=== PATIENT | female | born 1960 | race Caucasian/White ===

== ENCOUNTER 2020-04-04 00:13 | Emergency (ER) | payer SELFPAY ==
[2020-04-04] MEDS ORDERED: predniSONE 20 MG TAB ONE (00:51)
[2020-04-04] MEDS ORDERED: DIPHENHYDRAMINE 50 MG/ML VIAL ONE (00:51)
[2020-04-04] MEDS ORDERED: METHYLPREDNISOLONE 125 MG INJ ONE (00:51)
[2020-04-04] MEDS ORDERED: NA CHLORIDE 0.9% 1,000 ML ONE (00:51)
[2020-04-04] MEDS ORDERED: FAMOTIDINE 20 MG/2 ML VIAL IV ONE ×2 (00:52→01:03)
[2020-04-04 01:00] LABS: Absolute Lymphocytes (CBC) 3.4 K/uL (0.7-4.9); Basophils % 0.7 % (0-1.3); Lymphocytes % 27.5 % (15.3-44.8); MPV 8.6 fL (7.6-11.3); RBC Red Blood Cell Count 4.75 M/uL (3.86-4.86)
[2020-04-04] MEDS ORDERED: ONDANSETRON 4 MG/2 ML VIAL ONE (01:15)
[2020-04-04 02:08] LABS: Albumin 3.4 g/dL (3.4-5.0); Bilirubin Total 0.3 mg/dL (0.2-1.0); Potassium 3.8 mmol/L (3.5-5.1); Protein, Total 7.1 g/dL (6.4-8.2)
--- NOTE | 2020-04-04 02:15 | ER ---
Nurse's Notes [facility] Name: Michelle Cottrell Age: 59 yrs Sex: Female : 1960 Arrival Date: 04/04/2020 Time: 00:18 Bed 19 Private MD: Diagnosis: Urticaria;Angioneurotic edema;Essential (primary) hypertension Presentation: 04/04 00:28 Chief complaint: Patient states: was just started on some meds a few days ago. C/O wh redness, itchiness and swollen lips that started last night. Coronavirus screen: Client denies travel out of the [place] in the last 14 days. At this time, the client does not indicate any symptoms associated with coronavirus-19. Ebola Screen: Patient negative for fever greater than or equal to 101.5 degrees Fahrenheit, and additional compatible Ebola Virus Disease symptoms Patient denies exposure to infectious person. Onset: The symptoms/episode began/occurred yesterday. Anaphylaxis evaluation, the patient reports or I have noted the following symptoms which indicate a significant risk of anaphylaxis: urticaria. Initial Sepsis Screen: Does the patient meet any 2 criteria? HR > 90 bpm. Yes Does the patient have a suspected source of infection? No. Patient's initial sepsis screen is negative. Risk Assessment: Do you want to hurt yourself or someone else? Patient reports no desire to harm self or others. Onset of symptoms was April 02, 2020. 00:28 Method Of Arrival: Ambulatory 00:28 Acuity: MODESTA 4 wh Historical: - Allergies: 00:32 Morphine; 00:32 Benadryl; 00:32 Valium; wh - Home Meds: 00:32 trazodone 50 mg Oral tab 1 tab nightly [Active]; venlafaxine 150 mg oral cp24 1 cap once daily [Active]; lisinopril 5 mg Oral tab 1 tab once daily [Active]; - PMHx: 00:32 Depression; Anxiety; Hypertension; wh - Immunization history:: Adult Immunizations unknown. - Social history:: Smoking status: Patient reports the use of cigarette tobacco products, denies chronic smoking, but will smoke occasionally. - Family history:: not pertinent. Screenin:34 Abuse screen: Denies threats or abuse. Denies injuries from another. Nutritional screening: No deficits noted. Tuberculosis screening: No symptoms or risk factors identified. Fall Risk None identified. Assessment: 00:33 General: Appears in no apparent distress. Behavior is calm, cooperative, appropriate for age. Pain: Denies pain. Neuro: Level of Consciousness is awake, alert, obeys commands, Oriented to person, place, time, situation, Appropriate for age. Cardiovascular: Heart tones S1 S2. Respiratory: Airway is patent Respiratory effort is even, unlabored, Respiratory pattern is regular, symmetrical, Breath sounds are clear bilaterally. GI: Abdomen is flat, non-distended. : No signs and/or symptoms were reported regarding the genitourinary system. EENT: swollen lips. Throat is pink. Derm: Skin is intact, Reports itching. Musculoskeletal: Circulation, motion, and sensation intact. 01:42 Reassessment: Patient appears in no apparent distress at this time. No changes from previously documented assessment. Patient and/or family updated on plan of care and expected duration. Pain level reassessed. Patient is alert, oriented x 3, equal unlabored respirations, skin warm/dry/pink. Patient states feeling better. Patient states symptoms have improved. 02:30 Reassessment: Patient appears in no apparent distress at this time. Patient and/or family updated on plan of care and expected duration. Pain level reassessed. Patient is alert, oriented x 3, equal unlabored respirations, skin warm/dry/pink. Patient states feeling better. Patient states symptoms have improved. Vital Signs: 00:28 BP 182 / 85; Pulse 92; Resp 18; Temp 98.3; Pulse Ox 98% ; Weight 58.97 kg; Height 5 ft. 2 in. (157.48 cm); 01:35 BP 159 / 67; Pulse 77; Resp 16; Pulse Ox 98% on R/A; ms 02:30 BP 147 / 74; Pulse 72; Resp 18; Pulse Ox 97% on R/A; 00:28 Body Mass Index 23.78 (58.97 kg, 157.48 cm) ED Course: 00:18 Patient arrived in ED. bg2 00:20 Everett Hernandez is Primary Nurse. 00:28 Kelechi Jackson MD is Attending Physician. patricio 00:30 Triage completed. 00:34 Patient has correct armband on for positive identification. Bed in low position. Call light in reach. Side rails up X 1. Pulse ox on. NIBP on. 00:34 Arm band placed on right wrist. 00:51 Inserted saline lock: 20 gauge in right antecubital area, using aseptic technique. ms Blood collected. 02:31 No provider procedures requiring assistance completed. IV discontinued, intact, bleeding controlled, No redness/swelling at site. Administered Medications: 00:41 Drug: predniSONE 60 mg Route: PO; 02:31 Follow up: Response: No adverse reaction 00:51 Drug: NS 0.9% 1000 ml Route: IV; Rate: 1 bolus; Site: right antecubital; 02:31 Follow up: Response: No adverse reaction; IV Status: Completed infusion 00:53 Drug: SOLU-Medrol 125 mg Route: IVP; Site: right antecubital; 02:31 Follow up: Response: No adverse reaction 00:55 Drug: Pepcid 40 mg Route: IVP; Site: right antecubital; 02:31 Follow up: Response: No adverse reaction 00:57 Drug: Benadryl 25 mg Route: IVP; Site: right antecubital; 02:31 Follow up: Response: No adverse reaction 01:04 Drug: Zofran (Ondansetron) 4 mg Route: IVP; Site: right antecubital; 02:31 Follow up: Response: No adverse reaction; Nausea is decreased Outcome: 02:14 Discharge ordered by . [facility] 02:32 Discharged to home ambulatory. 02:32 Condition: stable 02:32 Discharge instructions given to patient, Instructed on discharge instructions, follow up and referral plans. no drinking with medication, no driving heavy equipment, medication usage, POC Demonstrated understanding of instructions, follow-up care, medications, POC Prescriptions given X 4. 02:32 Patient left the ED. Signatures: Kelechi Jackson MD MD cha Glass, Isabella Toledo mt, Winsy Corrections: (The following items were deleted from the chart) 00:33 00:28 Pulse 92bpm; Resp 18bpm; Pulse Ox 98%; Temp 98.3F; 58.97 kg; Height 5 ft. 2 in.; BMI: 23.7;
--- NOTE | 2020-04-04 02:15 | EDPHYS ---
Physician Documentation [facility] Name: Michelle Cottrell Age: 59 yrs Sex: Female : 1960 Arrival Date: 04/04/2020 Time: 00:18 Bed 19 Private MD: Keelchi Nava HPI: 04/04 00:35 This 59 yrs old Female presents to ER via Ambulatory with complaints of patricio Allergic Reaction. 00:35 This 59 yrs old Female presents to ER via Ambulatory with complaints of patricio Allergic Reaction. 00:35 The patient presents with hoarse voice, localized swelling, rash, redness of skin, patricio swelling of the lips. Onset: The symptoms/episode began/occurred just prior to arrival, today. Associated signs and symptoms: Pertinent positives: hives, rash, swelling. Possible causes: SEAN inhibitor, lisinopril. At home the patient or guardian has treated the symptoms with nothing. The patient has not experienced similar symptoms in the past. Historical: - Allergies: 00:32 Morphine; wh 00:32 Benadryl; wh 00:32 Valium; wh - Home Meds: 00:32 trazodone 50 mg Oral tab 1 tab nightly [Active]; venlafaxine 150 mg oral cp24 1 cap wh once daily [Active]; lisinopril 5 mg Oral tab 1 tab once daily [Active]; - PMHx: 00:32 Depression; Anxiety; Hypertension; wh - Immunization history:: Adult Immunizations unknown. - Social history:: Smoking status: Patient reports the use of cigarette tobacco products, denies chronic smoking, but will smoke occasionally. - Family history:: not pertinent. ROS: 00:35 Constitutional: Negative for fever, chills, and weight loss, Eyes: Negative for injury, patricio pain, redness, and discharge, Neck: Negative for injury, pain, and swelling, Cardiovascular: Negative for chest pain, palpitations, and edema, Respiratory: Negative for shortness of breath, cough, wheezing, and pleuritic chest pain, Abdomen/GI: Negative for abdominal pain, nausea, vomiting, diarrhea, and constipation, Back: Negative for injury and pain, : Negative for injury, bleeding, discharge, and swelling, MS/Extremity: Negative for injury and deformity, Skin: Negative for injury, rash, and discoloration, Neuro: Negative for headache, weakness, numbness, tingling, and seizure, Psych: Negative for depression, anxiety, suicide ideation, homicidal ideation, and hallucinations, Allergy/Immunology: Negative for hives, rash, and allergies, Endocrine: Negative for neck swelling, polydipsia, polyuria, polyphagia, and marked weight changes, Hematologic/Lymphatic: Negative for swollen nodes, abnormal bleeding, and unusual bruising. 00:35 ENT: Positive for of the right eye, left eye and mouth. 00:35 Skin: Positive for rash, swelling, of the right eye, left eye and mouth. Exam: 00:35 Constitutional: This is a well developed, well nourished patient who is awake, alert, patricio and in no acute distress. Eyes: Pupils equal round and reactive to light, extra-ocular motions intact. Lids and lashes normal. Conjunctiva and sclera are non-icteric and not injected. Cornea within normal limits. Periorbital areas with no swelling, redness, or edema. Neck: Trachea midline, no thyromegaly or masses palpated, and no cervical lymphadenopathy. Supple, full range of motion without nuchal rigidity, or vertebral point tenderness. No Meningismus. Chest/axilla: Normal chest wall appearance and motion. Nontender with no deformity. No lesions are appreciated. Cardiovascular: Regular rate and rhythm with a normal S1 and S2. No gallops, murmurs, or rubs. Normal PMI, no JVD. No pulse deficits. Respiratory: Lungs have equal breath sounds bilaterally, clear to auscultation and percussion. No rales, rhonchi or wheezes noted. No increased work of breathing, no retractions or nasal flaring. Abdomen/GI: Soft, non-tender, with normal bowel sounds. No distension or tympany. No guarding or rebound. No evidence of tenderness throughout. Back: No spinal tenderness. No costovertebral tenderness. Full range of motion. Female : Normal external genitalia. Skin: Warm, dry with normal turgor. Normal color with no rashes, no lesions, and no evidence of cellulitis. MS/ Extremity: Pulses equal, no cyanosis. Neurovascular intact. Full, normal range of motion. Neuro: Awake and alert, GCS 15, oriented to person, place, time, and situation. Cranial nerves II-XII grossly intact. Motor strength 5/5 in all extremities. Sensory grossly intact. Cerebellar exam normal. Normal gait. Psych: Awake, alert, with orientation to person, place and time. Behavior, mood, and affect are within normal limits. 00:35 Head/face: Noted is rash, that is urticarial, swelling. 00:35 Eyes: Extraocular movements: no acute changes. 00:35 ENT: Nose: Voice: is hoarse. 00:35 Skin: Appearance: Color: normal in color, Temperature: warm, Moisture: normal moisture, petechiae, not noted, ecchymosis, not noted. Vital Signs: 00:28 BP 182 / 85; Pulse 92; Resp 18; Temp 98.3; Pulse Ox 98% ; Weight 58.97 kg; Height 5 ft. 2 in. (157.48 cm); 01:35 BP 159 / 67; Pulse 77; Resp 16; Pulse Ox 98% on R/A; ky 02:30 BP 147 / 74; Pulse 72; Resp 18; Pulse Ox 97% on R/A; wh 00:28 Body Mass Index 23.78 (58.97 kg, 157.48 cm) MDM: 00:28 Patient medically screened. [facility] 00:38 Differential diagnosis: anaphylaxis, angioedema, bronchospasm, urticaria. Data patricio reviewed: vital signs, nurses notes, lab test result(s). 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 Counseling: I had a detailed discussion with the patient and/or guardian regarding: the historical points, exam findings, and any diagnostic results supporting the discharge/admit diagnosis, lab results, the need for outpatient follow up, for definitive care, a family practitioner. 02:13 ED course: improved, will dc with follow up , stop lisinopril, begin norvasc. [facility] 04/04 00:35 Order name: CBC with Diff; Complete Time: :13 patricio 04/04 00:35 Order name: Comprehensive Metabolic Panel; Complete Time: :13 patricio Administered Medications: 00:41 Drug: predniSONE 60 mg Route: PO; 02:31 Follow up: Response: No adverse reaction 00:51 Drug: NS 0.9% 1000 ml Route: IV; Rate: 1 bolus; Site: right antecubital; 02:31 Follow up: Response: No adverse reaction; IV Status: Completed infusion 00:53 Drug: SOLU-Medrol 125 mg Route: IVP; Site: right antecubital; 02:31 Follow up: Response: No adverse reaction 00:55 Drug: Pepcid 40 mg Route: IVP; Site: right antecubital; 02:31 Follow up: Response: No adverse reaction 00:57 Drug: Benadryl 25 mg Route: IVP; Site: right antecubital; 02:31 Follow up: Response: No adverse reaction 01:04 Drug: Zofran (Ondansetron) 4 mg Route: IVP; Site: right antecubital; 02:31 Follow up: Response: No adverse reaction; Nausea is decreased Disposition: 04/04/20 02:14 Discharged to Home. Impression: Urticaria, Angioneurotic edema, Essential (primary) hypertension. - Condition is Fair. - Discharge Instructions: Hives, Hypertension, Angioedema, Hypertension, [id number], Angioedema, [id number], Hives, [id number]. - Prescriptions for Benadryl 25 mg Oral Capsule - take 1 capsule by ORAL route every 6 hours As needed; 30 tablet. Pepcid 20 mg Oral Tablet - take 1 tablet by ORAL route every 12 hours for 10 days; 20 tablet. Prednisone 20 mg Oral Tablet - take 2 tablet by ORAL route once daily for 5 days; 10 tablet. EpiPen 0.3 mg Injection auto- injector - inject 1 pen by INTRAMUSCULAR route as directed Inject into the outer portion of the thigh, through clothing if necessary. Indicated in the emergency treatment of allergic reactions; 1 Container. Norvasc 5 mg Oral Tablet - take 1 tablet by ORAL route once daily; 20 tablet. - Medication Reconciliation Form, Thank You Letter, Antibiotic Education, Prescription Opioid Use form. - Follow up: Private Physician; When: 2 - 3 days; Reason: Recheck today's complaints, Re-evaluation by your physician. - Problem is new. - Symptoms have improved. Signatures: Dispatcher [employer] Kelechi Sanford MD MD cha [place], Winsy Corrections: (The following items were deleted from the chart) 02:32 02:14 04/04/2020 02:14 Discharged to Home. Impression: Urticaria; Angioneurotic edema; Essential (primary) hypertension. Condition is Fair. Discharge Instructions: Hives, Angioedema, Angioedema, [id number], Hives, [id number]. Prescriptions for Benadryl 25 mg Oral Capsule - take 1 capsule by ORAL route every 6 hours As needed; 30 tablet, Pepcid 20 mg Oral Tablet - take 1 tablet by ORAL route every 12 hours for 10 days; 20 tablet, Prednisone 20 mg Oral Tablet - take 2 tablet by ORAL route once daily for 5 days; 10 tablet, EpiPen 0.3 mg Injection auto-injector - inject 1 pen by INTRAMUSCULAR route as directed Inject into the outer portion of the thigh, through clothing if necessary. Indicated in the emergency treatment of allergic reactions; 1 Container. and Forms are Medication Reconciliation Form, Thank You Letter, Antibiotic Education, Prescription Opioid Use. Follow up: Private Physician; When: 2 - 3 days; Reason: Recheck today's complaints, Re-evaluation by your physician. Problem is new. Symptoms have improved. patricio
[2020-04-04 02:41] VITALS: TEMP 98.3
[2020-04-04 02:44] VITALS: BP 147/74; O2SAT 97
== END 2020-04-04 02:32 | disposition home or self-care (01) ==
LOC: ER 00:13
DX: T78.3XXA Angioneurotic edema, initial encounter (principal); I10 Essential (primary) hypertension; F41.8 Other specified anxiety disorders; F17.210 Nicotine dependence, cigarettes, uncomplicated; Z88.5 Allergy status to narcotic agent; Z88.8 Allergy status to other drugs, medicaments and biological substances
CPT/HCPCS: 36415; 80053; 85025; 96361; 96374; 96375; 99284; J1200; J2405; J2930; J7030; J7512